=== PATIENT | female | born 1975 | race Caucasian/White ===

== ENCOUNTER 2023-08-27 14:06 | Emergency (ER) | payer MEDICAID ==
[~2023-08-27] VITALS: Ht 157.5 cm; Wt 93.0 kg
[2023-08-27 14:10] VITALS: BP 147/90; TEMP 99; O2SAT 99
[2023-08-27 14:11] VITALS: PULSE 102; RESP 18
[2023-08-27 15:38] LABS: GLUCOSE URINE NEGATIVE (NEGATIVE)
[2023-08-27 16:10] LABS: CLARITY URINE TURBID (CLEAR); COLOR URINE RED (YELLOW); KETONES URINE 1+ (NEGATIVE); PH URINE 6.5 (4.5-8.0); PROTEIN URINE 3+ (NEGATIVE); SPECIFIC GRAVITY URINE 1.015 (1.005-1.030)
[2023-08-27 16:11] LABS: LEUKOCYTE ESTERASE URINE 2+ (NEGATIVE); NITRITE URINE POSITIVE (NEGATIVE); OCCULT BLOOD URINE 3+ (NEGATIVE)
[2023-08-27 16:12] LABS: RBC URINE TNTC /hpf (0-2); WBC URINE TNTC /hpf (0-2)
[2023-08-27 16:13] LABS: BACTERIA URINE 4+; SQUAMOUS EPITHELIAL CELL URINE 1+ /lpf (RARE/1+); YEAST URINE NONE SEEN
[2023-08-27] MEDS ORDERED: CEPH500T MT (16:40)
[2023-08-27] MEDS: CEFTRIAXONE SODIUM 1G VIAL IM ONE (17:07)
[2023-08-27] MEDS: KETOROLAC 15MG/ML VIAL IM ONE (17:07)
== END 2023-08-27 17:12 | disposition home or self-care (01) ==
LOC: ER 14:06
DX: N12 Tubulo-interstitial nephritis, not specified as acute or chronic (principal); Z98.890 Other specified postprocedural states
CPT/HCPCS: 81003; 81025; 87086; 96372; 99284; J0696; J1885; Z7610 ×2